=== PATIENT | male | born 1930 | race Caucasian/White ===

== ENCOUNTER 2018-01-20 16:26 | Emergency (ER) | payer MEDICARE, OTHER ==
--- NOTE | 2018-01-20 19:55 | CON ---
DATE OF CONSULTATION: 01/20/2018 EMERGENCY ROOM CONSULTED PHYSICIAN: Timothy Grady M.D. REASON FOR CONSULTATION: Urinary retention with inability to place a catheter. HISTORY OF PRESENT ILLNESS: Mr. Venegas is an 87-year-old white male who had a history of a recent hip replacement after he fell and broke his hip. Postoperatively, he was found to have urinary retentio n and had a catheter placed. He was unable to void and was discharged with a Ritter catheter. The pa tiesherrell was found today with his catheter removed and blood at the meatus. It is unclear whether the p atient ripped his catheter out himself or the catheter come out on its own, although the higher likel ihood is the patient removed his catheter on his own given the amount of bleeding. Attempts by the E R staff to replace the catheter have been unsuccessful with a 16 [place] straight catheter and an 18 F rench coude catheter. I was consulted for further assistance to help guide a catheter back in. On y discussion with the patient, he is extremely confused and demented. He is able to provide no histo ry. There is no family at the bedside. All the records are obtained from the ER staff and previous medical records from his last hospital stay for his hip replacement. PAST MEDICAL HISTORY: 1. COPD. 2. Chronic hypoxic respiratory failure. 3. History of pulmonary embolisms. 4. Hip fracture. 5. Degenerative joint disease. PAST SURGICAL HISTORY: 1. Appendectomy. 2. Hip replacement. HOME MEDICATIONS: Unknown at this time as the patient cannot provide any history. His medical recor ds are not available to review at this time. ALLERGIES: PENICILLIN. REVIEW OF SYSTEMS: A 12 point review of systems cannot be obtained as the patient is severely marielle ed and does not answer questions appropriately. PHYSICAL EXAMINATION: VITAL SIGNS: Stable. GENERAL: No apparent distress, communicative and alert. Does respond to questions, but does not ans wer questions appropriately. HEENT: Normocephalic, atraumatic. The patient has multiple skin lesions on the face. He is missing part of his left naris. He does have a nasal cannula in place and apparently uses home oxygen at [facility]. Trachea is midline. CARDIOVASCULAR: Regular rate and rhythm. Normal S1 and S2. Symmetric pulses. LUNGS: Prolonged expiratory phase with positive breath sounds, no wheezes or crackles. Slightly inc reased work of breathing. Symmetric expansion of the lungs. ABDOMEN: Soft, nontender, and nondistended. Positive bowel sounds. No organomegaly nonpalpable leoncio dder. No tenderness, rebound, guarding. GENITOURINARY: Patient is uncircumcised. Penis appears normal. There is no scrotal edema. Testicl es are bilaterally descended. There is blood at the meatus. RECTAL: Deferred at this time. EXTREMITIES: 1+ edema bilaterally. No cyanosis. SKIN: Warm, dry, good turgor, no rashes or lesions. EXTREMITIES: He has multiple ecchymosis under the skin on his arms and multiple previously aforement ioned lesions on his face. MUSCULOSKELETAL: No joint deformities or joint erythema noted. His previous hip scar is healing amanda ropriately. Range of motion was not tested given the patient is currently in rehabilitation and had recent orthopedic surgery. NEUROLOGIC: Cranial nerves II-XII appear grossly intact. Neurological exam is otherwise nonfocal. PSYCHIATRIC: Alert and oriented x1. The patient is severely demented and does not answer questions appropriately. PROCEDURES: As there is no family at the bedside and the patient cannot provide any contact informat ion and the patient has urinary retention which is fairly emergent, I made the decision to go ahead a nd discuss with the patient that we were going to do a cystoscopy with catheter placement. He agrees to it, although it is unclear whether he truly understands the nature of the surgery. However, give n the kind of urgent nature of getting a catheter in, we elected to proceed forward. His penis was p repped and draped in the usual sterile fashion. A flexible cystoscope was then passed through the ur ethra. The urethra was normal until the bulbar urethra was encountered which had a mild stricture. This was able to be navigated past with the cystoscope. There was a minor false passage present just at 6:00 below the stricture, although the tear was extremely small and was not bleeding at the time of cystoscopy. The prostate was found to be moderately obstructive and entry into the bladder demons trated significantly turbid urine, which did not allow for proper visualization. At this point, an A mplatz Super Stiff was advanced through the cystoscope into the bladder and the cystoscope removed le aving the wire in place. An 18 [place] [employer] tip catheter was then placed over the Super Stiff wir e into the bladder with ease. The wire was then removed and 10 mL of sterile water placed into the b alloon. The catheter was then affixed to the patient's leg with a StatLock and connected to a gravit y bag. Approximately 800 mL of yellow urine was drained out, which was nonbloody. The patient jacob ated the procedure well. ASSESSMENT AND PLAN: An 87-year-old white male with a urethral stricture and minor false passage wit h urinary retention secondary to an orthopedic surgery with likely benign prostatic hyperplasia. Pat karon's urinary retention, probably stem from the patient's surgery, narcotic pain medications, advanc ed age, benign prostatic hyperplasia and bedridden status. I would recommend that he keep his cathet er in for at least 7-10 days before we attempt to do a voiding trial. He should probably be started on Flomax, although it is unclear whether he is taking this medication or not at this time. Narcotic s should be minimized if possible. I will have him follow up with me in approximately a week or so t o remove his catheter and see if he can urinate. If he cannot, he is a very poor surgical candidate and I would not necessarily recommended transurethral resection of the prostate. We will continue vo iding trials, but if he is found to have permanent urinary retention, he will likely need to keep an indwelling catheter indefinitely either via Ritter or suprapubic tube which we can discuss later. For now, I would recommend empiric antibiotic coverage with levofloxacin and Rocephin and he can be disc harged with his Ritter to get gravity drainage. He should continue his rehabilitation at [facility] where he is currently residing and see me as an outpatient.
== END 2018-01-20 19:58 | disposition home or self-care (01) ==
LOC: ERS 16:26
DX: T83.021A Displacement of indwelling urethral catheter, initial encounter (principal); R31.9 Hematuria, unspecified; J43.9 Emphysema, unspecified; Z79.899 Other long term (current) drug therapy; Z86.711 Personal history of pulmonary embolism
CPT/HCPCS: 51702